=== PATIENT | male | born 1975 | race Caucasian/White ===

== ENCOUNTER 2023-12-07 04:55 | Emergency (ER) | payer BC, OTHER ==
[~2023-12-07] VITALS: Ht 175.3 cm; Wt 67.0 kg
[2023-12-07 05:05] VITALS: BP 128/82; PULSE 87; RESP 18; TEMP 98.1; O2SAT 100
[2023-12-07 05:35] LABS: BASOPHILS % 0.5 % (0.0-2.0); EOSINOPHILS % 1.4 % (0.0-5.0); HEMATOCRIT. 25.2 % (42.0-52.0); HEMOGLOBIN. 7.4 g/dL (14.0-18.0); LYMPHOCYTES % 8.4 % (20.0-50.0); MEAN CORPUSCULAR HEMOGLOBIN 18.8 pg (28.0-32.0); MEAN CORPUSCULAR HGB CONC 29.5 g/dL (31.0-37.0); MEAN CORPUSCULAR VOLUME 63.7 fL (80.0-94.0); MEAN PLATELET VOLUME 8.5 fl (7.4-10.4); MONOCYTES % 4.6 % (2.0-8.0); NEUTROPHILS % 85.1 % (40.0-76.0); PLATELET 133 x1000/uL (130-400); RED BLOOD CELL COUNT 3.96 mill/uL (4.7-6.1); RED CELL DISTRIBUTION WIDTH 23.1 % (11.6-14.6); WHITE BLOOD COUNT 6.1 x1000/uL (4.5-11.0)
[2023-12-07 05:45] LABS: CHLORIDE 105 mEq/L (98-107); POTASSIUM 3.8 mEq/L (3.5-5.1); SODIUM 139 mEq/L (136-145)
[2023-12-07 05:46] LABS: CALCIUM 9.4 mg/dL (8.7-10.4); CARBON DIOXIDE 26 mEq/L (21-32)
[2023-12-07 05:49] LABS: PROTHROMBIN TIME 11.4 sec (9.6-11.0)
[2023-12-07 05:51] LABS: CREATININE 0.7 mg/dL (0.6-1.3); GLUCOSE 158 mg/dL (70-105); UREA NITROGEN BLOOD 8 mg/dL (9-23)
[2023-12-07 05:52] LABS: ETHANOL BLOOD < 10 mg/dL (<10)
[2023-12-07 05:53] LABS: ALANINE AMINOTRANSFERASE 79 IU/L (10-49); ALBUMIN 4.7 g/dL (3.2-4.8); ASPARTATE AMINOTRANSFERASE 155 IU/L (<34); BILIRUBIN DIRECT 0.8 mg/dL (<=3.0)
[2023-12-07 05:54] LABS: BILIRUBIN TOTAL 1.4 mg/dL (0.1-1.0); PROTEIN TOTAL 7.8 g/dL (6.0-8.3)
[2023-12-07 06:10] LABS: CLARITY URINE TURBID (CLEAR); COLOR URINE YELLOW (YELLOW); GLUCOSE URINE NEGATIVE (NEGATIVE); KETONES URINE NEGATIVE (NEGATIVE); LEUKOCYTE ESTERASE URINE NEGATIVE (NEGATIVE); NITRITE URINE NEGATIVE (NEGATIVE); OCCULT BLOOD URINE NEGATIVE (NEGATIVE); PROTEIN URINE NEGATIVE (NEGATIVE); SPECIFIC GRAVITY URINE 1.013 (1.005-1.030)
[2023-12-07 06:35] LABS: DIFFERENTIAL COMMENT 1
[2023-12-07 06:39] LABS: ADD RBC MORPHOLOGY YES
[2023-12-07 06:43] LABS: *AMPHETAMINES SCREEN URINE NEGATIVE (NEGATIVE)
[2023-12-07 06:44] LABS: *BARBITURATES SCREEN URINE NEGATIVE (NEGATIVE); *BENZODIAZEPINES SCREEN URINE NEGATIVE (NEGATIVE); *COCAINE SCREEN URINE NEGATIVE (NEGATIVE); METHADONE URINE SCREEN NEGATIVE (NEGATIVE); OPIATES URINE SCREEN NEGATIVE (NEGATIVE); PHENCYCLIDINE URINE SCREEN NEGATIVE (NEGATIVE)
[2023-12-07 06:45] LABS: CANNABINOID URINE SCREEN NEGATIVE (NEGATIVE); ECSTASY MDMA SCREEN URINE NEGATIVE (NEGATIVE)
[2023-12-07] MEDS: MAGNESIUM/ALUMINUM HYDROXIDE/SIMETHICONE 30ML UDC PO ONE (07:02)
[2023-12-07] MEDS: ONDANSETRON 4MG ODT PO ONE (07:02)
[2023-12-07] MEDS: PANTOPRAZOLE 40MG DR TABLET PO ONE (07:02)
[2023-12-07 08:57] LABS: AMORPHOUS SEDIMENT URINE 2+ /lpf; BACTERIA URINE 1+; SQUAMOUS EPITHELIAL CELL URINE NONE SEEN /lpf (RARE/1+); WBC URINE 0-2 /hpf (0-2)
[2023-12-07] MEDS ORDERED: IOHEXOL-350 100 ML BOTTLE ONE (08:57)
[2023-12-07 08:58] LABS: RBC URINE NONE SEEN /hpf (0-2)
[2023-12-07] MEDS ORDERED: MAG-55 MT (10:06)
[2023-12-07] MEDS ORDERED: PANT40TA51 MT (10:06)
[2023-12-07] MEDS ORDERED: FERR324T4 MT (10:07)
[2023-12-07 11:53] LABS: ANISOCYTOSIS 1+; HYPOCHROMASIA 1+; MICROCYTOSIS 1+; PLATELET ESTIMATE NORMAL
== END 2023-12-07 10:32 | disposition home or self-care (01) ==
LOC: ER 04:55
DX: K29.70 Gastritis, unspecified, without bleeding (principal); D53.9 Nutritional anemia, unspecified; K80.20 Calculus of gallbladder without cholecystitis without obstruction; F10.20 Alcohol dependence, uncomplicated; Z79.899 Other long term (current) drug therapy
CPT/HCPCS: 80076; 80305; 80048; 81003; 80320; 82270; 83690; 85025; 85610; 36415; 74178; 76705; 99284; Q9967; Q0162; Z7610; G0480